=== PATIENT | female | born 1995 | race Caucasian/White ===

== ENCOUNTER 2025-01-30 14:52 | Emergency (ER) | payer OTHER, SELFPAY ==
[2025-01-30 15:00] VITALS: BP 111/79
[2025-01-30 16:15] VITALS: BMI 27.5
--- NOTE | 2025-01-30 16:24 | EDRN ---
Pt has two large bites noted on proximal lower R arm then multiple other smaller bites noted over lower arm all still bleeding. Pt has 3 small bites on L finger #3 and two small bites on finger # 2 (index finger).
[2025-01-30 16:27] VITALS: BMI 27.5
--- NOTE | 2025-01-30 16:37 | EDRN ---
Rosalee BARTH in room w/pt. Pt states dog did not get rabies and has been euphanized. Rosalee BARTH informed.
[2025-01-30 16:56] VITALS: BP 112/69
--- NOTE | 2025-01-30 16:58 | EDRN ---
Rosalee BARTH in to suture part of wounds.
--- NOTE | 2025-01-30 17:30 | ED.SKININJ ---
HPI-Injury
General
Chief Complaint: Bite
Source: patient
Exam Limitations: none
Time Seen by Provider: 01/30/25 16:25
History of Present Illness-Injury
Initial Injury comments:
29-year-old [id number] female presents with dog bite/laceration to right hand and left long finger. This was her boyfriend's dog. The dog's vaccines are not up-to-date but the dog does live with person. I have been notified by the nurse
that the dog has since been euthanized. Patient notes swelling to the right forearm and subtle inability to extend the right middle finger. She denies numbness or tingling. Last tetanus vaccine was over 5 years ago. No other complaints
Past History
Past History
ED Past Medical History: Asthma and Other (Migraines, pneumomediastinum); Negative HTN, Hypercholesterolemia or NIDDM
ED Past Surgical History: None
Social History
Tobacco: Non-smoker
Alcohol: None
Personal: Single
Living: alone
Phy Exam
Physical Exam
Physical Exam:
General: Well-appearing female no acute respiratory distress
Skin: Multiple puncture wounds/laceration to the right proximal forearm largest 1 measures about 4 cm and is around 2 cm. There is fatty tissue coming from the wound and muscle belly is visible in the wound. There is a smaller one over
the elbow which measures 2 cm superficial in nature.
Musculoskeletal exam: Able to flex and extend the elbow able to actively flex and extend the wrist. She has active extension of all fingers. Extension strength of the right middle finger is slightly weak but she feels pain in the forearm near the
wound when this happened.
Vascular: Palpable pulses to the radial and ulnar aspect of the right wrist with brisk capillary refill to the finger
Neurologic: Good sensation all fingers right hand
Course
Orders/Labs/Results
Orders:
Orders
01/30/25 15:10
Finger(s)/Thumb 2 View Lt [CR Finger(s)/thumb Min 2 Vw Lt] Urgent
Comment:
Reason For Exam: bite
Indicate Which Finger:: Middle Finger
Forearm, Right 2 View [CR Forearm - Right 2 View] Urgent
Comment:
Reason For Exam: dog bite
01/30/25 17:28
Amoxicillin 875 mg/Clav 125 mg [Augmentin 875 mg/125 mg] 1 tablet PO NOW STA
Tetanus/Diphth/Acelpertussis [Adacel] 0.5 ml IM .ONCE ONE
Vital Signs
Initial and Last Documented VS:
Initial Vital Signs
Temp Pulse Resp BP
98.2 F 104 16 111/79
01/30/25 15:00 01/30/25 15:00 01/30/25 15:00 01/30/25 15:00
Last Documented Vital Signs
Temp Pulse Resp BP Pulse Ox
98.2 F 88 16 112/69 100
01/30/25 15:00 01/30/25 16:56 01/30/25 16:56 01/30/25 16:56 01/30/25 16:56
MDM/Problems Addressed
Differential Diagnosis Includes:
Multiple dog bites puncture wound/laceration to the right elbow. Due to the size and gaping nature of the wound a larger one was closed. Discussion was had before this about wound closure in the setting of dog bites and the potential for increased
infection however given the size of the wound it was necessary. The wound was copiously irrigated with saline and anesthetized in a local fashion using 1% lidocaine with epinephrine. All nonviable tissue was removed. The skin was then closed with
4-0 Prolene sutures. 5 sutures were required in a simple erupted fashion to provide wound closure. The one on the elbow was closed in a similar fashion. X-rays of the forearm of the right side and hand on the left side were reviewed and are
negative for acute bony abnormality. Tetanus vaccine updated. She was started on Augmentin. Return precautions were given.
*Pulse Oximetry
SaO2: 100
Oxygen Mode of Delivery: Room air
*Critical Care Note
Total Time (30-74mins, 75-104mins- exclusive of procedures): Not Applicable
ED Attending Note
-
Portions of this chart may have been created with voice recognition software.� Occasional wrong word or��sound alike� substitutions may have occurred due to the inherent limitations of voice recognition software.
Discharge Plan
Departure
Patient Disposition: Home (Routine Discharge)
Date of Disposition: 01/30/25
Time of Disposition: 17:36
Patient with high blood pressure during this ER visit?: No
Discharge Problem:
Laceration, Dog bite
Instructions: Animal and human bites, Laceration Repair With Stitches (DC)
Prescriptions:
New
amoxicillin-pot clavulanate 875-125 mg tablet
1 tab PO BID Qty: 14 0RF
No Action
desog-e.estradiol/e.estradiol [Kariva (28)] 1 EACH tablet
1 tab PO DAILY
escitalopram oxalate 10 MG tablet
10 mg PO DAILY
albuterol sulfate 2.5 MG/3 ML solution for nebulization
2.5 mg inhalation R Q4HPRN PRN (Reason: shortness of breath) Qty: 1 0RF
promethazine-codeine 5 ML syrup
5 ml PO Q4HPRN PRN (Reason: Cough) Qty: 120 0RF
benzonatate 100 MG capsule
100 mg PO TID Qty: 42 0RF
Rx Instructions:
2 caps (200mg) three times per day
fluticasone propionate [Flovent HFA] 1 PUFF HFA aerosol inhaler
2 puff inhalation R BID Qty: 1 0RF
azithromycin 500 MG tablet
500 mg PO DAILY Qty: 2 0RF
ondansetron [Zofran ODT] 8 MG tablet,disintegrating
8 mg PO TID PRN (Reason: nausea/vomiting) Qty: 20 0RF
oxycodone 5 MG tablet
5 mg PO Q4HPRN PRN (Reason: pain) Qty: 10 0RF
cyclobenzaprine 10 mg tablet
10 mg PO HS PRN (Reason: muscle spasm) Qty: 10 0RF
oxycodone 5 mg tablet
5 mg PO Q8H PRN (Reason: severe pain) Qty: 12 0RF
prednisone 50 mg tablet
50 mg PO DAILY Qty: 5 0RF
Referrals:
Olivia Almanza CRNP [Family Provider, Internal Medicine]
David Elkins MD [Active, Orthopedics]
Activity Restrictions/Additional Instructions:
Watch for signs of infection. You may use Tylenol or ibuprofen for pain. Have sutures removed in 10 to 14 days. Return if worse otherwise follow-up with hand specialist for dysfunction of the right middle finger persist
Interventions
Interventions:
*Risk Screen - Suicide Last Done: 01/30/25 16:15
*General Assessment Last Done: 01/30/25 16:15
*Neglect/Abuse Screening Last Done: 01/30/25 16:15
*ED- Fall Risk Assessment Last Done: 01/30/25 16:15
*ED COVID-19 Vaccine History Last Done: 01/30/25 15:00
ED-Skin Assessment Last Done: 01/30/25 16:28
Discharge Date and Time
Print Language: SINHALA
--- NOTE | 2025-01-30 17:35 | EDRN ---
Pt up to BR at this time.
[2025-01-30] MEDS: AUGMENTIN 875 MG/125 MG 1 TABLET PO (17:47)
[2025-01-30] MEDS: ADACEL 0.5 ML IM (17:50)
--- NOTE | 2025-01-30 17:50 | EDRN ---
R lower arm bites dressed w/ double antibiotic ointment, telfa x2 and kerlix.
== END 2025-01-30 17:58 | disposition home or self-care (01) ==
LOC: EMR 14:52
PROVIDERS: EMERGENCY PHYSICIAN Student in an Organized Health Care Education/Training Program; FAMILY PHYSICIAN Nurse Practitioner
DX: S51.851A Open bite of right forearm, initial encounter (principal); S50.371A Other superficial bite of right elbow, initial encounter; S61.213A Laceration without foreign body of left middle finger without damage to nail, initial encounter; W54.0XXA Bitten by dog, initial encounter; Z23 Encounter for immunization
CPT/HCPCS: 99285; 13121; 12001; 90471; 73090; 73140; 90715